=== PATIENT | female | born 1985 | race Hispanic/Latino ===

== ENCOUNTER 2020-10-27 13:02 | Day surgery (SDC) | payer OTHER ==
[2020-10-27] MEDS ORDERED: HYDROcodone/Acetaminophen 5/325 mg Tablet PO PRN (15:41)
[2020-10-27 15:49] VITALS: BMI 33.7
[2020-10-27] MEDS ORDERED: HYDROcodone/Acetaminophen 5/325 mg Tablet PO SCH (16:00)
== END 2020-10-27 16:39 | disposition home health service (06) ==
LOC: CSHLD/OP 13:02
PROVIDERS: ATTEND Obstetrics & Gynecology
DX: O99.891 Other specified diseases and conditions complicating pregnancy (principal); M54.41 Lumbago with sciatica, right side; O24.410 Gestational diabetes mellitus in pregnancy, diet controlled; O99.213 Obesity complicating pregnancy, third trimester; E66.9 Obesity, unspecified; O09.293 Supervision of pregnancy with other poor reproductive or obstetric history, third trimester; Z3A.28 28 weeks gestation of pregnancy
CPT/HCPCS: 99283